=== PATIENT | female | born 1945 | race Caucasian/White ===

== ENCOUNTER 2016-09-07 20:46 | Emergency (ER) | payer MEDICARE, OTHER ==
[~2016-09-07] VITALS: Ht 167.6 cm; Wt 76.0 kg
[~2016-09-07 20:46] MED LIST: ALEN70 PO; AMIT50TA13 PO; AMLO10 PO; ASPI81TA82 PO; CENTTAB9 PO; CITA10SO PO; COZA50TA PO; DEXI30CA2 PO; FE T325T PO; FENO50TA PO; FEXO60TA PO; FISH1000 PO; OXYC-68 PO; RIVA10 PO; TERA2CAP3 PO; TOPR100T15 PO
[2016-09-07 20:54] VITALS: BP 179/112; PULSE 94; RESP 18; TEMP 98.3
[2016-09-07] MEDS ORDERED: FEXO180T PO (21:03)
[2016-09-07] MEDS ORDERED: CITA40TA4 PO (21:03)
[2016-09-07] MEDS ORDERED: ENAL20TA PO (21:03)
[2016-09-07] MEDS ORDERED: DEXI60CA PO (21:03)
[2016-09-07] MEDS ORDERED: AMIT75TA2 PO (21:03)
[2016-09-07] MEDS ORDERED: ALEN35TA24 PO (21:03)
[2016-09-07] MEDS ORDERED: AMLO10TA2 PO (21:03)
[2016-09-07] MEDS ORDERED: METO200T3 PO (21:03)
[2016-09-07] MEDS ORDERED: LOSA100T PO (21:03)
[2016-09-07] MEDS ORDERED: CLON0.1T PO (21:03)
[2016-09-07] MEDS ORDERED: MULT-6 PO (21:03)
[2016-09-07] MEDS ORDERED: FENO145T2 PO (21:03)
--- NOTE | 2016-09-07 21:13 | PD ---
HPI Chief Complaint: Chest Pain Time Seen by Provider: 20:56 Travel History International Travel<30 days: No Contact w/Intl Traveler<30days: No Traveled to known affect area: No History of Present Illness HPI The patient is a 71-year-old female that complains of an achy type feeling in the substernal area of her chest intermittently since last week. It last about 15-20 minutes and goes away. There is no radiation of the pain. She is short of breath and does complain of some extremity swelling but denies any nausea or diaphoresis. The patient sees Dr. Mason primarily for her blood pressure. Her last stress test was 15 years ago. Apparently, they have had a hard time controlling her blood pressure. She states she once had an irregular heartbeat that was not atrial fibrillation. The patient states that she walks approximately 200 feet and she gets short of breath and the chest aching feeling. PFSH Past Medical History Arthritis: Yes Autoimmune Disease: No Depression: Yes Heart Rhythm Problems: Yes (AFIB) Cancer: Yes (SKIN) Cardiac Catheterization: Yes Cardiovascular Problems: Yes (LEFT CARTOID OCCLUSION 25%; MVP) High Cholesterol: Yes Chest Pain: Yes Diabetes: No Diminished Hearing: No Gastrointestinal Disorders: Yes (IBS) GERD: Yes Genitourinary: Yes (URETHRAL STENOSIS ; PT SELF DILATION) Hypertension: Yes Immune Disorder: No Medical other: Yes (c pap at ) Musculoskeletal: Yes Reproductive: Yes (ENDOMETRIOSIS) Respiratory: No Immunizations Current: No Ulcer: Yes Tetanus Vaccination: Never Vaccinated Menopausal: Yes : 0 Para: 0 Miscarriage: 0 : 0 Past Surgical History Abdominal Surgery: Yes Cardiac Surgery: Yes (CARDIAC CATH) Eye Surgery: Yes (BILAT EYE IMPLANT ) Genitourinary Surgery: Yes (CYSTOSCOPY (MULTIPLE); URETHEOTOMY 1983) Gynecologic Surgery: Yes (TOTAL ABDOMINAL HYSTERECTOMY 1967) Hysterectomy: Yes (1967) Joint Replacement: Yes (RIGHT HIP/BILATERAL KNEE) Other Surgery: Yes (MELANOMA R SHOULDER) Social History Alcohol Use: Yes (OCC) Tobacco Use: No (quit in 1977) Substance Use: No Allergies-Medications (Allergen,Severity, Reaction): Coded Allergies: Adhesives (Verified Allergy, Severe, Irritation, 09/07/16) Reported Meds & Prescriptions Reported Meds & Active Scripts Active Reported Fexofenadine (Fexofenadine HCl) 180 Mg Tab 180 Mg PO DAILY Centrum (Multiple Vitamins W/ Minerals) 1 Tab 1 Tab PO DAILY Enalapril (Enalapril Maleate) 20 Mg Tab 20 Mg PO DAILY Losartan (Losartan Potassium) 100 Mg Tab 100 Mg PO DAILY Alendronate (Alendronate Sodium) 35 Mg Tab 35 Mg PO Q7D Metoprolol Succinate ER 24 HR (Metoprolol Succinate) 200 Mg Tab 200 Mg PO DAILY Dexilant (Dexlansoprazole) 60 Mg Cap 60 Mg PO DAILY Clonidine (Clonidine HCl) 0.1 Mg Tab 0.1 Mg PO BID Citalopram (Citalopram Hydrobromide) 40 Mg Tab 40 Mg PO DAILY Fenofibrate 145 Mg Tab 134 Mg PO DAILY Amitriptyline (Amitriptyline HCl) 75 Mg Tab 75 Mg PO HS Amlodipine (Amlodipine Besylate) 10 Mg Tab 10 Mg PO DAILY Review of Systems Except as stated in HPI: all other systems reviewed are Neg Physical Exam Narrative GENERAL: The patient is alert, oriented 3 in no apparent distress. She is not in any pain at this time. Her vital signs show pulse of 94 with blood pressure 179/112 but are otherwise normal. SKIN: Focused skin assessment warm/dry. HEAD: Atraumatic. Normocephalic. EYES: Pupils equal and round. No scleral icterus. No injection or drainage. ENT: No nasal bleeding or discharge. Mucous membranes pink and moist. NECK: Trachea midline. No JVD. CARDIOVASCULAR: Regular rate and rhythm. No murmur appreciated. RESPIRATORY: No accessory muscle use. Clear to auscultation. Breath sounds equal bilaterally. GASTROINTESTINAL: Abdomen soft, non-tender, nondistended. Hepatic and splenic margins not palpable. MUSCULOSKELETAL: No obvious deformities. No clubbing. No cyanosis. There is 1 + bilateral lower extremity edema. NEUROLOGICAL: Awake and alert. No obvious cranial nerve deficits. Motor grossly within normal limits. Normal speech. PSYCHIATRIC: Appropriate mood and affect; insight and judgment normal. Data Data Last Documented VS Vital Signs Date Time Temp Pulse Resp B/P Pulse Ox O2 Delivery O2 Flow Rate FiO2 09/07/16 21:49 95 18 145/72 Room Air 09/07/16 20:54 98.3 Orders Electrocardiogram (09/07/16 21:06) B-Type Natriuretic Peptide (09/07/16 21:06) Complete Blood Count With Diff (09/07/16 21:06) Comprehensive Metabolic Panel (09/07/16 21:06) Magnesium (Mg) (09/07/16 21:06) Prothrombin Time / Inr (Pt) (09/07/16 21:06) Act Partial Throm Time (Ptt) (09/07/16 21:06) Troponin I (09/07/16 21:06) Ecg Monitoring (09/07/16 21:06) Iv Access Insert/Monitor (09/07/16 21:) Oximetry (09/07/16 21:) Oxygen Administration (09/07/16 21:06) Aspirin Chew (Aspirin Chew) (09/07/16 21:15) Sodium Chloride 0.9% Flush (Ns Flush) (09/07/16 21:15) Nitroglycerin Sl (Nitrostat Sl) (09/07/16 21:15) Chest, Pa & Lat (09/07/16 21:06) Furosemide Inj (Lasix Inj) (09/07/16 21:15) Labs Laboratory Tests Test 09/07/16 21:10 White Blood Count 6.4 TH/MM3 Red Blood Count 4.37 MIL/MM3 Hemoglobin 12.6 GM/DL Hematocrit 36.2 % Mean Corpuscular Volume 82.9 FL Mean Corpuscular Hemoglobin 28.8 PG Mean Corpuscular Hemoglobin 34.7 % Concent Red Cell Distribution Width 13.2 % Platelet Count 224 TH/MM3 Mean Platelet Volume 9.0 FL Neutrophils (%) (Auto) 54.2 % Lymphocytes (%) (Auto) 32.2 % Monocytes (%) (Auto) 10.2 % Eosinophils (%) (Auto) 2.8 % Basophils (%) (Auto) 0.6 % Neutrophils # (Auto) 3.5 TH/MM3 Lymphocytes # (Auto) 2.1 TH/MM3 Monocytes # (Auto) 0.6 TH/MM3 Eosinophils # (Auto) 0.2 TH/MM3 Basophils # (Auto) 0.0 TH/MM3 CBC Comment DIFF FINAL Differential Comment Prothrombin Time 10.7 SEC Prothromb Time International 1.0 RATIO Ratio Activated Partial 24.1 SEC Thromboplast Time Sodium Level 142 MEQ/L Potassium Level 3.6 MEQ/L Chloride Level 104 MEQ/L Carbon Dioxide Level 28.5 MEQ/L Anion Gap 10 MEQ/L Blood Urea Nitrogen 22 MG/DL Creatinine 1.20 MG/DL Estimat Glomerular Filtration 44 ML/MIN Rate Random Glucose 110 MG/DL Calcium Level 9.3 MG/DL Magnesium Level 2.4 MG/DL Total Bilirubin 0.3 MG/DL Aspartate Amino Transf 25 U/L (AST/SGOT) Alanine Aminotransferase 35 U/L (ALT/SGPT) Alkaline Phosphatase 63 U/L Troponin I LESS THAN 0.02 NG/ML B-Type Natriuretic Peptide 171 PG/ML Total Protein 7.8 GM/DL Albumin 4.4 GM/DL MDM Medical Decision Making Medical Screen Exam Complete: Yes Emergency Medical Condition: Yes Medical Record Reviewed: Yes Interpretation(s) The EKG shows sinus rhythm with a rate of [address] T-wave changes are present in the anterior septal region. No acute change is noted. Differential Diagnosis Unstable angina, acute coronary syndromeunlikely, electrolyte disorder, congestive heart failure, pulmonary edema, chest pain etiology undetermined Narrative Course The patient states she gets decreasing exercise tolerance and shortness of breath with walking in her backyard approximately 200 feet. This can be early congestive heart failure, the chest x-ray is normal. The BNP is slightly elevated at 171. The troponin I is normal. She has not had a stress test in 15 years. I discussed the patient with Dr. Mason in his office will call the patient tomorrow to set up a stress test. Impression: Chest pain etiology undetermined Diagnosis Primary Impression: Chest pain of unknown etiology Additional Instructions: As we discussed, return immediately to the emergency department, call an ambulance if you get tightness that does not go away. Dr. Mason's office will contact you tomorrow to set up that stress test. Med/Other Pt SpecificInfo: No Change to Meds Disposition: 01 DISCHARGE HOME Condition: Stable Franc Astudillo MD September 07, 2016 21:13
[2016-09-07] MEDS ORDERED: SODIUM CHLORIDE 0.9% FLUSH 10 ML FLUSH IVF PRN (21:15)
[2016-09-07] MEDS ORDERED: ASPIRIN 81 MG CHEW TAB PO ONE (21:15)
[2016-09-07] MEDS ORDERED: FUROSEMIDE 40 MG/4 ML VIAL IV PUSH ONE (21:15)
[2016-09-07] MEDS: NITROGLYCERIN 0.4 MG SL 25 TABS/BTL SL SCH ×3 (21:20→21:42)
[2016-09-07 21:21] LABS: AUTOMATED NEUTROPHIL # 3.5 TH/MM3 (1.8-7.7); BASOPHIL % 0.6 % (0.0-2.0); EOSINOPHIL # 0.2 TH/MM3 (0-0.4); EOSINOPHIL % 2.8 % (0.0-4.0); HEMATOCRIT 36.2 % (35.0-46.0); LYMPH % 32.2 % (9.0-44.0); LYMPHOCYTE # 2.1 TH/MM3 (1.0-4.8); MEAN CELL VOLUME 82.9 FL (80.0-100.0); MEAN CORPUSCULAR HEMOGLOBIN 28.8 PG (27.0-34.0); MEAN CORPUSCULAR HGB CONC 34.7 % (32.0-36.0); MONO % 10.2 % (0.0-8.0); NEUT % 54.2 % (16.0-70.0); PLATELET COUNT 224 TH/MM3 (150-450); RED BLOOD COUNT 4.37 MIL/MM3 (4.00-5.30); RED CELL DISTRIBUTION WIDTH 13.2 % (11.6-17.2); WHITE BLOOD COUNT 6.4 TH/MM3 (4.0-11.0)
[2016-09-07 21:28] LABS: CHLORIDE 104 MEQ/L (98-107); POTASSIUM 3.6 MEQ/L (3.5-5.1); SODIUM (NA) 142 MEQ/L (136-145)
--- NOTE | 2016-09-07 21:29 | RADHPO ---
EXAM DATE/TIME: 09/07/2016 21:17 [facility] COMPARISON: No previous studies available for comparison. INDICATIONS : Chest pain for 3 weeks MEDICAL HISTORY : Hypertension. Hypercholesterolemia. A-fib SURGICAL HISTORY : None. ENCOUNTER: Initial ACUITY: 3 weeks PAIN SCORE: 5/10 LOCATION: Bilateral chest FINDINGS: PA and lateral views of the chest demonstrate the lungs to be symmetrically aerated without evidence of mass, infiltrate or effusion. The cardiomediastinal contours are unremarkable. Osseous structure s are intact. CONCLUSION: No acute disease. Charlie Warren MD on September 07, 2016 at 21:26 Board Certified Radiologist. This report was verified electronically.
[2016-09-07 21:30] LABS: HEMO FLAGS DIFF FINAL
[2016-09-07 21:32] LABS: ANION GAP 10 MEQ/L (5-15); APTT (PATIENT) 24.1 SEC (24.3-30.1); BICARBONATE 28.5 MEQ/L (21.0-32.0); BLOOD UREA NITROGEN 22 MG/DL (7-18); MAGNESIUM 2.4 MG/DL (1.5-2.5); PROTHROMBIN TIME - PATIENT 10.7 SEC (9.8-11.6)
[2016-09-07 21:35] LABS: ALT (GPT) 35 U/L (10-53); AST (GOT) 25 U/L (15-37); GLOMERULAR FILTRATION RATE 44 ML/MIN (>89)
[2016-09-07 21:37] LABS: TOTAL BILIRUBIN ADULT 0.3 MG/DL (0.2-1.0)
[2016-09-07 21:38] LABS: ALKALINE PHOSPHATASE 63 U/L (45-117)
[2016-09-07 21:49] VITALS: BP 145/72; PULSE 95; RESP 18
--- NOTE | 2016-09-08 18:32 | EKG ---
Date Performed: 09/07/2016 Time Performed: 20:52:08 PTAGE: 71 years EKG: Sinus rhythm Anteroseptal ST changes are nonspecific Borderline ECG Compared to prior tracing no significant sahu ge PREVIOUS TRACING : 01/08/2013 11.30 DOCTOR: Chester Mccullough Interpretating Date/Time 09/08/2016 18:29:50
== END 2016-09-07 23:09 | disposition home or self-care (01) ==
LOC: PHED 20:46
DX: R07.89 Other chest pain (principal); R94.31 Abnormal electrocardiogram [ECG] [EKG]; R06.02 Shortness of breath; I48.91 Unspecified atrial fibrillation; E78.00 Pure hypercholesterolemia, unspecified; I10 Essential (primary) hypertension; Z87.891 Personal history of nicotine dependence
CPT/HCPCS: 71020; 80053; 83735; 83880; 84484; 85025; 85610; 85730; 93005; 96374; 99285; J1940

== ENCOUNTER 2017-05-06 22:09 | Emergency (ER) | payer MEDICARE ==
[~2017-05-06] VITALS: Ht 167.6 cm; Wt 77.4 kg
[~2017-05-06 22:09] MED LIST changes: +ALEN35TA24 PO; -ALEN70 PO; -AMIT50TA13 PO; +AMIT75TA2 PO; -AMLO10 PO; +AMLO10TA2 PO; -ASPI81TA82 PO; -CENTTAB9 PO; -CITA10SO PO; +CITA40TA4 PO; +CLON0.1T PO; -COZA50TA PO; -DEXI30CA2 PO; +DEXI60CA PO; +ENAL20TA PO; -FE T325T PO; +FENO145T2 PO; -FENO50TA PO; +FEXO180T PO; -FEXO60TA PO; -FISH1000 PO; +LOSA100T PO; +METO-393 PO; +MULT-6 PO; -OXYC-68 PO; -RIVA10 PO; -TERA2CAP3 PO; -TOPR100T15 PO
[2017-05-06 22:22] VITALS: BP 149/90; PULSE 88; RESP 12; TEMP 100.2; O2SAT 95
[2017-05-06] MEDS ORDERED: ACETAMINOPHEN 325 MG TAB PO ONE (22:45)
--- NOTE | 2017-05-06 22:47 | PD ---
HPI Chief Complaint: Cough Time Seen by Provider: 22:28 Travel History International Travel<30 days: No Contact w/Intl Traveler<30days: No History of Present Illness HPI 71yo F with PMH of CAD, HTN presents to the ED with c/o cough and nasal congestion for 2 days. Said she had mild fever 100F today. Said she does not have chest pain but more chest wall pain when she coughs. Denies any sob, n/v, abdominal pain, diarrhea, focal weakness or numbness. Pt follows with Dr. Mason who is her training systems officer. PFSH Past Medical History Arthritis: Yes Autoimmune Disease: No Depression: Yes Heart Rhythm Problems: Yes (AFIB) Cancer: Yes (SKIN) Cardiac Catheterization: Yes Cardiovascular Problems: Yes (LEFT CARTOID OCCLUSION 25%; MVP) High Cholesterol: Yes Chest Pain: Yes Diabetes: No Diminished Hearing: No Gastrointestinal Disorders: Yes (IBS) GERD: Yes Genitourinary: Yes (URETHRAL STENOSIS ; PT SELF DILATION) Hypertension: Yes Immune Disorder: No Musculoskeletal: Yes Reproductive: Yes (ENDOMETRIOSIS) Respiratory: No Immunizations Current: No Ulcer: Yes Menopausal: Yes : 0 Para: 0 Miscarriage: 0 : 0 Past Surgical History Abdominal Surgery: Yes Cardiac Surgery: Yes (CARDIAC CATH) Eye Surgery: Yes (BILAT EYE IMPLANT ) Genitourinary Surgery: Yes (CYSTOSCOPY (MULTIPLE); URETHEOTOMY 1983) Gynecologic Surgery: Yes (TOTAL ABDOMINAL HYSTERECTOMY 1967) Hysterectomy: Yes (1967) Joint Replacement: Yes (RIGHT HIP/BILATERAL KNEE) Other Surgery: Yes (MELANOMA R SHOULDER) Social History Alcohol Use: Yes () Tobacco Use: No (quit in 1977) Substance Use: No Allergies-Medications (Allergen,Severity, Reaction): Coded Allergies: adhesive (Unverified Allergy, Severe, Irritation, 05/06/17) Reported Meds & Prescriptions Reported Meds & Active Scripts Active Tylenol (Acetaminophen) 325 Mg Tab 325 Mg PO Q4H PRN Robitussin Lingering Cold (Dextromethorphan HBr) 15 Mg Cap 30 Mg PO Q8H PRN Reported Fexofenadine (Fexofenadine HCl) 180 Mg Tab 180 Mg PO DAILY Centrum (Multiple Vitamins W/ Minerals) 1 Tab 1 Tab PO DAILY Enalapril (Enalapril Maleate) 20 Mg Tab 20 Mg PO DAILY Losartan (Losartan Potassium) 100 Mg Tab 100 Mg PO DAILY Alendronate (Alendronate Sodium) 35 Mg Tab 35 Mg PO Q7D Metoprolol Succinate ER 24 HR (Metoprolol Succinate) 200 Mg Tab 200 Mg PO DAILY Dexilant (Dexlansoprazole) 60 Mg Cap 60 Mg PO DAILY Clonidine (Clonidine HCl) 0.1 Mg Tab 0.1 Mg PO BID Citalopram (Citalopram Hydrobromide) 40 Mg Tab 40 Mg PO DAILY Fenofibrate 145 Mg Tab 134 Mg PO DAILY Amitriptyline (Amitriptyline HCl) 75 Mg Tab 75 Mg PO HS Amlodipine (Amlodipine Besylate) 10 Mg Tab 10 Mg PO DAILY Review of Systems Except as stated in HPI: all other systems reviewed are Neg Physical Exam Narrative GENERAL: 71yo F in mild distress. SKIN: Focused skin assessment warm/dry. HEAD: Atraumatic. Normocephalic. EYES: Pupils equal and round. No scleral icterus. No injection or drainage. ENT: Throat: Uvula midline. No tonsillar exudate. Patent airway. No edema uvula. Right TM wnl. Left TM: +Cerumen. NECK: Trachea midline. No JVD. CARDIOVASCULAR: Regular rate and rhythm. No murmur appreciated. RESPIRATORY: No accessory muscle use. Clear to auscultation. Breath sounds equal bilaterally. GASTROINTESTINAL: Abdomen soft, non-tender, nondistended. MUSCULOSKELETAL: No obvious deformities. No clubbing. No cyanosis. Trace lower extremity edema. NEUROLOGICAL: Awake and alert. No obvious cranial nerve deficits. Motor grossly within normal limits. Normal speech. PSYCHIATRIC: Appropriate mood and affect; insight and judgment normal. Data Data Last Documented VS Vital Signs Date Time Temp Pulse Resp B/P (MAP) Pulse Ox O2 Delivery O2 Flow Rate FiO2 05/06/17 22:45 Room Air 05/06/17 22:22 100.2 88 12 149/90 (109) 95 Orders Orders Complete Blood Count With Diff (05/06/17 22:38) Basic Metabolic Panel (Bmp) (05/06/17 22:38) Electrocardiogram (05/06/17 ) Troponin I (05/06/17 22:38) Chest, Single Ap (05/06/17 ) Acetaminophen (Tylenol) (05/06/17 22:45) Influenzae A/B Antigen (05/06/17 22:40) Guaifen-Cod 200-20 Mg/10ml Liq (Robituss (05/06/17 23:15) Labs Laboratory Tests Test 05/06/17 23:20 White Blood Count 10.4 TH/MM3 Red Blood Count 4.19 MIL/MM3 Hemoglobin 11.6 GM/DL Hematocrit 36.5 % Mean Corpuscular Volume 87.1 FL Mean Corpuscular Hemoglobin 27.7 PG Mean Corpuscular Hemoglobin Concent 31.8 % Red Cell Distribution Width 12.1 % Platelet Count 312 TH/MM3 Mean Platelet Volume 8.6 FL Neutrophils (%) (Auto) 76.9 % Lymphocytes (%) (Auto) 12.7 % Monocytes (%) (Auto) 7.4 % Eosinophils (%) (Auto) 2.4 % Basophils (%) (Auto) 0.6 % Neutrophils # (Auto) 8.0 TH/MM3 Lymphocytes # (Auto) 1.3 TH/MM3 Monocytes # (Auto) 0.8 TH/MM3 Eosinophils # (Auto) 0.2 TH/MM3 Basophils # (Auto) 0.1 TH/MM3 CBC Comment DIFF FINAL Differential Comment Blood Urea Nitrogen 18 MG/DL Creatinine 1.10 MG/DL Random Glucose 167 MG/DL Calcium Level 8.6 MG/DL Sodium Level 139 MEQ/L Potassium Level 3.5 MEQ/L Chloride Level 104 MEQ/L Carbon Dioxide Level 24.8 MEQ/L Anion Gap 10 MEQ/L Estimat Glomerular Filtration Rate 49 ML/MIN Troponin I LESS THAN 0.02 NG/ML MDM Medical Decision Making Medical Screen Exam Complete: Yes Emergency Medical Condition: Yes Interpretation(s) EKG: NSR 85bpm. Normal axis. No ST segment elevation or depression. TWI V2. Differential Diagnosis Pneumonia vs. influenza vs. bronchitis vs. URI Narrative Course 71yo F with cough and mild fever. Pt has no chest pain or sob, chest wall pain only with coughing. Temperature is 100.2F, given acetaminophen. O2 sat is 95% on RA. Lungs are clear but given cough and fever, will do CXR to r/o pneumonia. Pt given robitussin and acetaminophen. Pt reevaluated at bedside and symptoms have improved. Influenza negative. CXR negative. Labs reviewed, no leukocytosis. Troponin negative. Pt denies any chest pain or sob. Feels better after medication. Return precautions given. Diagnosis Primary Impression: Cough Patient Instructions: General Instructions Departure Forms: Tests/Procedures Additional Instructions: Please follow up with your primary care physician in 3-7 days. Return to the ED if symptoms worsen. Med/Other Pt SpecificInfo: Prescription(s) given Scripts Acetaminophen (Tylenol) 325 Mg Tab 325 MG PO Q4H Y for FEVER, #20 TAB 0 Refills Prov: Hayley Hartman DO 05/06/17 Dextromethorphan (Robitussin Lingering Cold) 15 Mg Cap 30 MG PO Q8H Y for COUGH, #6 CAP 0 Refills Prov: Hayley Hartman DO 05/06/17 Disposition: 01 DISCHARGE HOME Condition: Stable Hayley Hartman DO May 06, 2017 22:46
--- NOTE | 2017-05-06 23:00 | RADRPT ---
EXAM DATE/TIME: 05/06/2017 22:44 [facility] COMPARISON: CHEST PA & LAT, September 07, 2016, 21:17. INDICATIONS : Cough. MEDICAL HISTORY : Hypertension. Hypercholesterolemia. A-fib SURGICAL HISTORY : None. ENCOUNTER: Initial ACUITY: 4 - 6 days PAIN SCORE: 0/10 LOCATION: Bilateral chest FINDINGS: A single view of the chest demonstrates the lungs to be symmetrically aerated without evidence of mas s, infiltrate or effusion. The cardiomediastinal contours are unremarkable. Osseous structures are intact. CONCLUSION: No evidence of acute cardiopulmonary disease. Dio Nava MD on May 06, 2017 at 22:58 Board Certified Radiologist. This report was verified electronically.
[2017-05-06] MEDS ORDERED: guaiFENesin/CODEINE SYRUP 200 MG/20 MG/10 ML CUP PO ONE (23:15)
[2017-05-06 23:34] LABS: BASOPHIL # 0.1 TH/MM3 (0-0.2); BASOPHIL % 0.6 % (0.0-2.0); EOSINOPHIL # 0.2 TH/MM3 (0-0.4); EOSINOPHIL % 2.4 % (0.0-4.0); HEMATOCRIT 36.5 % (35.0-46.0); HEMOGLOBIN 11.6 GM/DL (11.6-15.3); LYMPH % 12.7 % (9.0-44.0); LYMPHOCYTE # 1.3 TH/MM3 (1.0-4.8); MEAN CELL VOLUME 87.1 FL (80.0-100.0); MEAN CORPUSCULAR HEMOGLOBIN 27.7 PG (27.0-34.0); MEAN CORPUSCULAR HGB CONC 31.8 % (32.0-36.0); MEAN PLATELET VOLUME 8.6 FL (7.0-11.0); MONO % 7.4 % (0.0-8.0); MONOCYTE # 0.8 TH/MM3 (0-0.9); NEUT % 76.9 % (16.0-70.0); PLATELET COUNT 312 TH/MM3 (150-450); RED BLOOD COUNT 4.19 MIL/MM3 (4.00-5.30); RED CELL DISTRIBUTION WIDTH 12.1 % (11.6-17.2); WHITE BLOOD COUNT 10.4 TH/MM3 (4.0-11.0)
[2017-05-06] MEDS ORDERED: ROBICAP2 PO (23:39)
[2017-05-06] MEDS ORDERED: TYLE325T PO (23:40)
[2017-05-06 23:43] LABS: CHLORIDE 104 MEQ/L (98-107); SODIUM (NA) 139 MEQ/L (136-145)
[2017-05-06 23:45] LABS: CALCIUM 8.6 MG/DL (8.5-10.1)
[2017-05-06 23:46] LABS: BICARBONATE 24.8 MEQ/L (21.0-32.0); BLOOD UREA NITROGEN 18 MG/DL (7-18); GLUCOSE,RANDOM 167 MG/DL (74-106)
[2017-05-06 23:49] LABS: GLOMERULAR FILTRATION RATE 49 ML/MIN (>89)
[2017-05-06 23:54] LABS: TROPONIN I LESS THAN 0.02 NG/ML (0.02-0.05)
[2017-05-07 00:15] VITALS: BP 149/88
--- NOTE | 2017-05-07 13:12 | EKG ---
Date Performed: 05/06/2017 Time Performed: 22:58:21 PTAGE: 71 years EKG: Sinus rhythm NONSPECIFIC T-WAVE ABNORMALITY BORDERLINE ECG PREVIOUS TRACING : 09/07/2016 20.52 Compared to prior tracing no significant change DOCTOR: Victor Manuel Bynum Interpretating Date/Time 05/07/2017 13:11:46
== END 2017-05-07 00:17 | disposition home or self-care (01) ==
LOC: PHED 22:09
DX: R05 Cough (principal); R09.81 Nasal congestion; R50.9 Fever, unspecified; I25.10 Atherosclerotic heart disease of native coronary artery without angina pectoris; I10 Essential (primary) hypertension; M19.90 Unspecified osteoarthritis, unspecified site; R94.31 Abnormal electrocardiogram [ECG] [EKG]; I48.91 Unspecified atrial fibrillation; E78.00 Pure hypercholesterolemia, unspecified
CPT/HCPCS: 71010; 80048; 84484; 85025; 87804; 93005